=== PATIENT | male | born 1960 | race Caucasian/White ===

== ENCOUNTER 2020-07-23 19:53 | Emergency (ER) | payer OTHER ==
[~2020-07-23] VITALS: Ht 172.7 cm; Wt 102.7 kg
[2020-07-23 20:20] VITALS: BP 150/92
== END 2020-07-23 21:45 | disposition home or self-care (01) ==
LOC: M ED 19:53 → EDBD 19:53 → M ED 21:45
DX: Z04.6 Encounter for general psychiatric examination, requested by authority (principal)